=== PATIENT | female | born 1970 | race Hispanic/Latino ===

== ENCOUNTER → 2018-03-27 | Outpatient (CLI) | payer MEDICARE, OTHER ==
[~2018-03-27] MED LIST: LIDOCAINE HCL MPF 1% 5ML VIAL ONE
== END | disposition home or self-care (01) ==
LOC: RAH 09:45
PROVIDERS: ATTEND Internal Medicine Infectious Disease
DX: G91.9 Hydrocephalus, unspecified (principal); E11.9 Type 2 diabetes mellitus without complications; E66.01 Morbid (severe) obesity due to excess calories; Z90.49 Acquired absence of other specified parts of digestive tract; Z98.890 Other specified postprocedural states; Z88.8 Allergy status to other drugs, medicaments and biological substances; Z68.41 Body mass index [BMI] 40.0-44.9, adult
CPT/HCPCS: 62272; J3490; 62270

== ENCOUNTER 2024-03-13 20:33 | Emergency (ER) | payer MEDICARE ==
[~2024-03-13] VITALS: Ht 154.9 cm; Wt 117.0 kg
[2024-03-13 20:39] VITALS: BP 154/59; PULSE 74; RESP 16; TEMP 98
[2024-03-13] MEDS ORDERED: PROCHLORPERAZINE 10MG/2ML INJ IV ONE (21:00)
[2024-03-13] MEDS ORDERED: DiphenhydrAMINE HCL 50 MG/ML VIAL IM ONE (21:00)
[2024-03-13] MEDS ORDERED: ketOROlac 30MG VIAL (30MG/ML) IM ONE (21:00)
== END 2024-03-14 00:19 | disposition left against medical advice (07) ==
LOC: EDH 20:33
DX: Z00.00 Encounter for general adult medical examination without abnormal findings (principal); F32.A Depression, unspecified; E11.9 Type 2 diabetes mellitus without complications; Z90.49 Acquired absence of other specified parts of digestive tract; Z88.8 Allergy status to other drugs, medicaments and biological substances

== ENCOUNTER 2024-08-19 15:43 | Emergency (ER) | payer MEDICARE ==
[~2024-08-19] VITALS: Ht 154.9 cm; Wt 110.2 kg
[2024-08-19 15:57] VITALS: BP 176/70; PULSE 80; RESP 20; TEMP 99.9; O2SAT 99
[2024-08-19] MEDS: 0.9%NACL 1000ML 1,000 ML IV ONE (16:06)
[2024-08-19] MEDS: morPHINE 2 MG SYG IVP ONE (16:06)
[2024-08-19 16:09] LABS: APPEARANCE,URINE TURBID (CLEAR); BILIRUBIN,URINE NEGATIVE (NEGATIVE); COLOR,URINE LIGHT-ORANGE (YELLOW); GLUCOSE, URINE (UA) NEGATIVE (NEGATIVE); KETONES,URINE NEGATIVE (NEGATIVE); LEUKOCYTE ESTERASE ,URINE 500 Leu/uL (NEGATIVE); NITRATE,URINE 2+ (NEGATIVE); OCCULT BLOOD,URINE MODERATE (NEGATIVE); PH,URINE 5.5 (5.0-8.0); PROTEIN,URINE 50 mg/dL (NEGATIVE); UROBILINOGEN,URINE 0.2 mg/dL (0.2-1.0)
[2024-08-19 16:14] LABS: ADD UA MICROSCOPIC YES
[2024-08-19 16:16] LABS: BASOPHILS # (AUTO) 0.04 K/uL (0.00-0.20); BASOPHILS % (AUTO) 0.4 % (0.0-5.0); EOSINOPHILS # (AUTO) 0.05 K/uL (0.00-0.70); EOSINOPHILS % (AUTO) 0.5 % (0.0-8.0); HEMATOCRIT 45.9 % (36-48); IMMATURE GRANULOCYTE ABSOLUTE 0.03 K/uL (0-1); MEAN CORPUSCULAR HEMOGLOBIN 28.4 pg (27.0-33.0); MEAN CORPUSCULAR HGB CONC 32.7 g/dL (32.0-36.0); MEAN CORPUSCULAR VOLUME 86.8 fL (79-99); MONOCYTES # (AUTO) 0.6 K/uL (0.1-1.0); MONOCYTES % (AUTO) 5.1 % (3.0-13.0); NEUTROPHILS # (AUTO) 9.3 K/uL (1.8-7.7); NEUTROPHILS % (AUTO) 84.7 % (40.0-77.0); PLATELET COUNT (AUTO) 203 K/uL (130-400); RED BLOOD CELL COUNT(AUTO) 5.29 MIL/uL (4.00-5.50); RED CELL DISTRIBUTION WIDTH 14.2 % (11.0-15.5)
[2024-08-19 16:25] LABS: BACTERIA,URINE RARE /HPF (None Seen); SQUAMOUS EPITHELIAL CELL,UR RARE /HPF (0-2); UNCLASSIFIED CRYSTAL 6 /HPF (None Seen); WBC CLUMP MOD /HPF (0-1); WBC,URINE TNTC /HPF (0-1); YEAST,URINE BUDDING FEW /HPF (None Seen)
[2024-08-19 16:28] LABS: CREATININE 0.8 mg/dL (0.5-1.0); POTASSIUM 4.1 mmol/L (3.5-5.1)
[2024-08-19 16:33] LABS: ALBUMIN 3.4 g/dL (3.5-5.0); BILIRUBIN,TOTAL 0.6 mg/dL (0.2-1.0); TOTAL PROTEIN, SERUM 7.9 g/dL (6.0-8.3)
--- NOTE | 2024-08-19 16:37 | HMCIMG ---
CT ABDOMEN/PELVIS W/O CONTRAST REASON: Flank pain COMPARISON: 03/06/2018 FINDINGS: Lung bases are clear. There are no focal liver lesions. Liver does not appear enlarged.. Spleen and pancreas appear unremarkable. There has been a previous cholecystectomy. There is normal-appearing right kidney. There is mild pelvicalyceal fullness left kidney along with some perinephric stranding. There is some stranding around the left ureter as well. There is no evidence of ureteral stone and no visible stone in the urinary bladder. These findings may represent changes from a recently passed stone. Pyelonephritis can cause this appearance as well. Kidneys are otherwise unremarkable. Right kidney appears normal. There are no masses. There are no renal stones. Bowel loops appear unremarkable. This includes normal appearance of the appendix There is no evidence of free fluid or intraperitoneal air. There are no focal fluid collections. Aorta and retroperitoneum appear normal as do pelvic soft tissue structures. The anterior abdominal wall is intact. Osseous structures appear unremarkable. IMPRESSION: 1. Pelvicalyceal fullness left kidney along with some perirenal and pararenal the ureteral stranding, but no stone identified. 2. Nonspecific findings, recently passed stone can cause this appearance, pyelonephritis can result in this appearance as well. 3. Absent gallbladder. 4. Otherwise unremarkable exam. CT was performed with one or more following dose reduction techniques: automated exposure control, adjustment of the mA and kv according to patient's size, or use of a iterative reconstruction technique.
[2024-08-19] MEDS ORDERED: CEPH500T PO (17:03)
--- NOTE | 2024-08-19 17:04 | ERN ---
General Chief Complaint: Flank Pain Stated Complaint: FLANK PAIN Time Seen by MD: 15:45 Time Seen by Midlevel: 15:45 Source: patient History of Present Illness Initial Comments 54-year-old female who presents to the emergency department by EMS due to bilateral flank pain onset three days. Patient reports painful urination but denies any fever, vomiting, abdominal pain or further associated symptoms. PMHx HTN, DM, anxiety Allergies: Coded Allergies: paroxetine (Verified Allergy, Unknown, 03/06/18) sertraline (Verified Allergy, Unknown, 03/06/18) Home Meds Active Scripts Cephalexin (Cephalexin) 500 Mg Tablet, 500 MG PO BID for 7 Days, #14 TAB Prov:TALAT TAY 08/19/24 Past Medical History Past Medical History: Anxiety, Diabetes-Type II, Hypertension Medical History Other: PTSD, HYDROCEPHALUS Past Surgical History: None ROS Dictation Constitutional: Negative for fever,chills, and weight loss Eyes: Negative for injury, pain,redness, and discharge ENT: Negative for injury,pain or swelling Cardiovascular: Negative for chest pain, palpitations, and edema Respiratory: Negative for shortness of breath, cough, and wheezing, Abdomen/GI: Negative for abdominal pain, nausea, vomiting, diarrhea, and constipation Back: Positive for bilateral flank pain Negative for injury and pain : Positive for painful urination Negative for bleeding or discharge MS/Extremity: Negative for injury and deformity Skin: Negative for rash, and discoloration Neuro: Negative for headache, weakness, numbness, tingling, and seizure Psych: Negative for suicide ideation, homicidal ideation, and hallucinations Physical Exam Physical Exam Dictation General: awake, alert, no acute distress Head/Face: Normocephalic, atraumatic Eyes: PERRL, EOMI, normal conjunctiva ENT: oral cavity clear, oral mucosa moist Neck: Normal range of motion, supple Cardiovascular: RRR, normal S1/S2 Respiratory: CTAB, no respiratory distress, No rales or wheezes Abdomen: Soft, non-tender, non-distended, no guarding or rebound. Back: No CVA tenderness Skin: Warm, dry, normal turgor, no rash MS/Extremity: Pulses equal, no cyanosis, neurovascular intact, FROM Neuro: COAx4, GCS 15, no neurological deficits Psych: Normal behavior, mood, and affect normal Results Laboratory and Microbiology Lab and Micro Result Laboratory Tests Test 08/19/24 15:46 08/19/24 16:07 Urine Color LIGHT-ORANGE (YELLOW) Urine Appearance TURBID (CLEAR) Urine pH 5.5 (5.0-8.0) Urine Specific [place] 1.009 (1.001-1.031) Urine Protein 50 mg/dL (NEGATIVE) H Urine Glucose (UA) NEGATIVE mg/dL (NEGATIVE) Urine Ketones NEGATIVE mg/dL (NEGATIVE) Urine Occult Blood MODERATE (NEGATIVE) H Urine Nitrate 2+ (NEGATIVE) H Urine Bilirubin NEGATIVE mg/dL (NEGATIVE) Urine Urobilinogen 0.2 mg/dL (0.2-1.0) Urine Leukocyte Esterase 500 Joon/uL (NEGATIVE) H Urine RBC 11-25 /HPF (0-1) H Urine WBC TNTC /HPF (0-1) H Urine WBC Clumps (Auto) MOD /HPF (0-1) Urine Squamous Epithelial Cells RARE /HPF (0-2) Urine Other Crystals (Auto) 6 /HPF (None Seen) Urine Bacteria RARE /HPF (None Seen) Urine Yeast FEW /HPF (None Seen) Urine HCG, Qualitative NEGATIVE (NEGATIVE) White Blood Count 11.0 K/uL (4.8-10.8) H Red Blood Count 5.29 MIL/uL (4.00-5.50) Hemoglobin 15.0 g/dL (12.0-16.0) Hematocrit 45.9 % (36-48) Mean Corpuscular Volume 86.8 fL (79-99) Mean Corpuscular Hemoglobin 28.4 pg (27.0-33.0) Mean Corpuscular Hemoglobin Concent 32.7 g/dL (32.0-36.0) Red Cell Distribution Width 14.2 % (11.0-15.5) Platelet Count 203 K/uL (130-400) Mean Platelet Volume 11.2 fL (7.5-10.5) H Immature Granulocyte % (Auto) 0.3 % (0-1) Neutrophils (%) (Auto) 84.7 % (40.0-77.0) H Lymphocytes (%) (Auto) 9.0 % (21.0-51.0) L Monocytes (%) (Auto) 5.1 % (3.0-13.0) Eosinophils (%) (Auto) 0.5 % (0.0-8.0) Basophils (%) (Auto) 0.4 % (0.0-5.0) Neutrophils # (Auto) 9.3 K/uL (1.8-7.7) H Lymphocytes # (Auto) 1.0 K/uL (1.0-4.8) Monocytes # (Auto) 0.6 K/uL (0.1-1.0) Eosinophils # (Auto) 0.05 K/uL (0.00-0.70) Basophils # (Auto) 0.04 K/uL (0.00-0.20) Absolute Immature Granulocyte (auto 0.03 K/uL (0-1) Nucleated Red Blood Cells 0.0 % (0.0-0.19) White Cell Morphology Comment See comments Sodium Level 137 mmol/L (136-145) Potassium Level 4.1 mmol/L (3.5-5.1) Chloride Level 102 mmol/L (101-111) Carbon Dioxide Level 31 mmol/L (21-32) Blood Urea Nitrogen 12 mg/dL (7-18) Creatinine 0.8 mg/dL (0.5-1.0) Glomerular Filtration Rate Calc 89 mL/min (>90) Random Glucose 139 mg/dL (70-105) H Total Calcium 9.2 mg/dL (8.5-10.1) Total Bilirubin 0.6 mg/dL (0.2-1.0) Aspartate Amino Transf (AST/SGOT) 11 U/L (10-37) Alanine Aminotransferase (ALT/SGPT) 18 U/L (12-78) Alkaline Phosphatase 82 U/L (50-136) Total Protein 7.9 g/dL (6.0-8.3) Albumin 3.4 g/dL (3.5-5.0) L Lipase 20 U/L (16-77) Labs Reviewed?: Yes EKG/XRAY/US/CT/MRI CT Scan Comment REASON: Flank pain ORDERING PHYSICIAN: TALAT TAY PROCEDURE: ABD PEL WO - CT ABDOMEN/PELVIS W/O CONTRAST CT ABDOMEN/PELVIS W/O CONTRAST REASON: Flank pain COMPARISON: 03/06/2018 FINDINGS: Lung bases are clear. There are no focal liver lesions. Liver does not appear enlarged.. Spleen and pancreas appear unremarkable. There has been a previous cholecystectomy. There is normal-appearing right kidney. There is mild pelvicalyceal fullness left kidney along with some perinephric stranding. There is some stranding around the left ureter as well. There is no evidence of ureteral stone and no visible stone in the urinary bladder. These findings may represent changes from a recently passed stone. Pyelonephritis can cause this appearance as well. Kidneys are otherwise unremarkable. Right kidney appears normal. There are no masses. There are no renal stones. Bowel loops appear unremarkable. This includes normal appearance of the appendix There is no evidence of free fluid or intraperitoneal air. There are no focal fluid collections. Aorta and retroperitoneum appear normal as do pelvic soft tissue structures. The anterior abdominal wall is intact. Osseous structures appear unremarkable. IMPRESSION: 1. Pelvicalyceal fullness left kidney along with some perirenal and pararenal the ureteral stranding, but no stone identified. 2. Nonspecific findings, recently passed stone can cause this appearance, pyelonephritis can result in this appearance as well. 3. Absent gallbladder. 4. Otherwise unremarkable exam. CT was performed with one or more following dose reduction techniques: automated exposure control, adjustment of the mA and kv according to patient's size, or use of a iterative reconstruction technique. MDM MDM: Differential diagnosis: UTI, pyelonephritis, nephrolithiasis Rationale: 54-year-old female who presents to the emergency department due to bilateral flank pain onset three days. Patient reports painful urination but denies any fever, vomiting, abdominal pain or further associated symptoms. PMHx HTN, DM, anxiety Per physical examination patient is in no acute distress, nonlabored breathing, abdomen is soft nontender, no CVA tenderness. Labs obtained are nonspecific mild WBC elevation at 11 otherwise labs within normal limits. UA positive for urinary tract infection. Rocephin administered in the ED. CT abdomen pelvis obtained indicating left kidney fullness with some perirenal and a pararenal ureteral stranding with no stone. Patient received morphine in the ED on re- examination patient verbalized pain had completely subsided. Patient was educat ed on findings and diagnosis. Antibiotics prescribed for outpatient treatment. Advised to follow up with PCP. Return to the emergency department if any worsening symptoms. Patient verbalized understanding. Patient stable for discharge. There are no social concerns with this patient. I independently interpreted the test that were performed, results were reviewed by me and considered findings on radiology if ordered. Medical management and examination interpretation discussions were had by me with other qualified healthcare professionals as indicated for the patient's care. ED Course Orders Procedure Category Date Status Time Cbc With Differential LAB 08/19/24 Complete 15:45 Comprehensive LAB 08/19/24 Complete Metabolic Panel 15:45 ,Urine Test LAB 08/19/24 Complete 15:45 Lipase LAB 08/19/24 Complete 15:45 Urinalysis Profile LAB 08/19/24 Complete 15:47 Ct Abdomen/Pelvis W/O CT 08/19/24 Resulted Contrast 15:53 Morphine 2mg Syg PHA 08/19/24 Complete (Morphine 2mg Syg) 16:00 0.9%Nacl 1000ml (Ns PHA 08/19/24 Complete 1000ml) 16:00 Culture Urine GARRET 08/19/24 In Process 16:14 Ceftriaxone 1g Vial PHA 08/19/24 Complete (Rocephine 1g Inj) 17:00 Current Medications Medications (Trade) Dose Ordered Sig/Gely Route PRN Reason Start Time Stop Time Status Last Admin Dose Admin Ceftriaxone Sodium (ROCEphine 1G INJ) 1 gm ONCE ONCE IVPB 08/19/24 17:00 08/19/24 17:02 DC 08/19/24 17:05 Morphine Sulfate (morPHINE 2MG SYG) 2 mg ONCE ONCE IVP 08/19/24 16:00 08/19/24 16:01 DC 08/19/24 16:06 Sodium Chloride 1,000 ml @ 0 mls/hr ONCE ONCE IV 08/19/24 16:00 08/19/24 16:01 DC 08/19/24 16:06 Vital Signs Date Time Temp Pulse Resp B/P (MAP) Pulse Ox O2 Delivery O2 Flow Rate FiO2 08/19/24 15:57 99.9 80 20 176/70 99 Room Air* 0 21 08/19/24 15:54 99.9 88 20 113/69 96 0 DX & DISP Disposition: Discharge Departure Impression: Primary Impression: Urinary tract infection Condition: Stable Scripts Cephalexin (Cephalexin) 500 Mg Tablet 500 MG PO BID for 7 Days, #14 TAB Prov: TALAT TAY 08/19/24 Additional Instructions: Discharge home. Rest. Follow up with primary care in 24 hours. Return to the ER for any acute changes or worsening symptoms. If any medications were prescribed take as directed. Okay to continue home medications unless otherwise discussed during your visit in the emergency room today. Patient was also advised to follow-up with primary care physician in 1 to 2 days for continued monitoring. Referrals: MARJAN CLEANING MD (PCP) I participated in the following activities of this patient's care: For this patient encounter, I reviewed the PA or ROTARY DRILLER documentation, treatment plan, and medical decision making. I did not have [id number] time with this patient. I will sign as the reviewing Dr. And agree with the treatment plan and disposition. TALAT TAY Aug 19, 2024 17:04
[2024-08-19] MEDS: cefTRIAXone 1G VIAL IVPB ONE (17:05)
== END 2024-08-19 17:33 | disposition home or self-care (01) ==
LOC: EDH 15:43
DX: N39.0 Urinary tract infection, site not specified (principal); I10 Essential (primary) hypertension; E11.9 Type 2 diabetes mellitus without complications; F41.9 Anxiety disorder, unspecified; Z79.899 Other long term (current) drug therapy
CPT/HCPCS: 99285; 74176; 96365; 96361; 96375; 80053; 83690; 85025; 87086 ×2; 87186; 81001; 81025; 36415; J2270 ×2; J7030; J0696

== ENCOUNTER 2024-12-24 00:39 | Emergency (ER) | payer MEDICARE ==
[~2024-12-24] VITALS: Ht 154.9 cm; Wt 110.2 kg
[~2024-12-24 00:39] MED LIST changes: +CEPH500T PO; -LIDOCAINE HCL MPF 1% 5ML VIAL ONE
--- NOTE | 2024-12-24 00:44 | ERN ---
ED Note History of Present Illness Stated Complaint: FLU LIKE SYMPTOMS Chief Complaint: Flu Symptoms Time Seen by MD: 01:08 Time Seen by Midlevel: 00:38 Dictation: Ms. Pedro is a 54 year old female with history of obesity, hypertension, type II DM, hydrocephalus, anxiety, bipolar depression and anxiety who was transported via EMS to the Emergency Department this morning for evaluation of flu symptoms. She reports 3 days of fatigue, general weakness, fever, chills, cough, wheezing, loss of taste, nausea, vomiting, diarrhea, AJ, dizziness, and anxiety. She states she has been unable to take any of her medications or keep down food or fluids. Upon arrival to the ED she is anxious and tearful stating she is scared to be at home. She states he and she lives alone. She is drinking a very large convenience store soda. She denies shortness of breath, chest pain, palpitations, edema, abdominal pain, hematemesis, constipation, melena, hematochezia, dysuria, or focal weakness/paresthesia Allergies: Coded Allergies: paroxetine (Verified Allergy, Unknown, 03/06/18) sertraline (Verified Allergy, Unknown, 03/06/18) Emergency Care APPRENTICE TECHNICIAN: IV Home Meds Active Scripts Cephalexin (Cephalexin) 500 Mg Tablet, 1 TAB PO BID for 10 Days, #20 TAB 0 Refills Prov:SIDDHARTHA HANSEN NP 12/24/24 Ondansetron (Ondansetron Odt) 4 Mg Tab.rapdis, 4 MG PO Q6HPRN PRN for nausea, #15 TAB 0 Refills Prov:SIDDHARTHA HANSEN NP 12/24/24 Cephalexin (Cephalexin) 500 Mg Tablet, 500 MG PO BID for 7 Days, #14 TAB Prov:TALAT TAY 08/19/24 Past Medical History Past Medical History: Anxiety, Diabetes-Type II, Hypertension Additional Past Medical Hx: PTSD, HYDROCEPHALUS Surgical History: None PSYCH History: anxiety, bipolar, depression Social History: Negative, Lives alone History: Not Applicable RN Note Reviewed/Agreed w/PFSH: Yes Review of System Dictation REVIEW OF SYSTEMS: CONSTITUTIONAL: Patient denies sweats and weight changes. Reports fatigue, general weakness, fever, and chills. EYES: Patient denies any visual symptoms. EARS, NOSE, AND THROAT: No difficulties with hearing. No symptoms of rhinitis or sore throat. Reports loss of taste. CARDIOVASCULAR: Patient denies chest pains, palpitations, orthopnea and paroxysmal nocturnal dyspnea. RESPIRATORY: No dyspnea on exertion. Reports cough and wheezing. GI: No constipation, abdominal pain, hematochezia or melena. Reports nausea, vomiting, and diarrhea. : No urinary hesitancy or dribbling. No nocturia or urinary frequency. No ab normal urethral discharge. MUSCULOSKELETAL: No myalgias or arthralgias. NEUROLOGIC: No chronic headaches, no seizures. Patient denies numbness, tingling or weakness. Reports headache and dizziness. PSYCHIATRIC: Patient denies problems with mood disturbance. No problems with anxiety. ENDOCRINE: No excessive urination or excessive thirst. DERMATOLOGIC: Patient denies any rashes or skin changes. Initial Vital Sign VS Vital Signs Date Time Temp Pulse Resp B/P (MAP) Pulse Ox O2 Delivery O2 Flow Rate FiO2 12/24/24 00:42 99.0 87 18 120/82 99 Room Air 12/24/24 00:48 0 21 Physical Exam Dictation Vital signs: Reviewed. Temp 99. Constitutional: Appears older than stated age. Anxious, tearful. Smells strongly of urine. Head/Face: Normocephalic, atraumatic. Eyes: Periorbital areas with no swelling, redness, or edema. Lids and lashes are normal. Conjunctival injection is absent. Sclera anicteric. Pupils equal, round, reactive to light. ENT: Pinnas intact and no signs of trauma or erythema. Ear canals clear and no discharge. TMs no erythema. No nasal discharge or bleeding noted. Oropharynx with no exudate, redness, swelling, masses, exudates, or evidence of obstruction. Uvula midline. Mucous membranes slightly dry. Neck: Trachea midline, no masses palpated, and no cervical lymphadenopathy. No swelling. Supple, full range of motion. Chest/Axilla: No tenderness, no crepitus, no paradoxical movement, no retractions. Cardiovascular: Regular rate, regular rhythm, no murmur, no gallops. Symmetric pulses. No peripheral edema. Normotensive. Respiratory: Respirations even and unlabored. Lung sounds slightly diminished in bases. No wheezes, rales, or rhonchi. Room air SpO2 98% : negative CVA tenderness bilaterally. Was up to bathroom but did not obtain sample. Gastrointestinal: Obese. No distention is appreciated. Bowel sounds are normal. No mass or organomegaly . There is no tenderness. No rebound. No rigidity. No voluntary or involuntary guarding. No Gasca's sign. Neurological: Normal speech, gross motor function intact, gross sensory function intact. No focal weakness/Paresthesia. Musculoskeletal/Extremities: All extremities have full range of motion, no pain or tenderness on palpation. Symmetric pulses. Integumentary: Intact. Skin is normal color, warm and dry. Cap refill less than 2 seconds. Results (Laboratory/Radiology) Laboratory/Radiology Laboratory Tests Test 12/24/24 00:51 12/24/24 00:58 12/24/24 02:43 White Blood Count 6.1 K/uL (4.8-10.8) Red Blood Count 5.07 MIL/uL (4.00-5.50) Hemoglobin 14.6 g/dL (12.0-16.0) Hematocrit 43.8 % (36-48) Mean Corpuscular Volume 86.4 fL (79-99) Mean Corpuscular Hemoglobin 28.8 pg (27.0-33.0) Mean Corpuscular Hemoglobin Concent 33.3 g/dL (32.0-36.0) Red Cell Distribution Width 15.2 % (11.0-15.5) Platelet Count 122 K/uL (130-400) L Mean Platelet Volume 11.6 fL (7.5-10.5) H Immature Granulocyte % (Auto) 0.2 % (0-1) Neutrophils (%) (Auto) 77.4 % (40.0-77.0) H Lymphocytes (%) (Auto) 13.5 % (21.0-51.0) L Monocytes (%) (Auto) 8.7 % (3.0-13.0) Eosinophils (%) (Auto) 0.0 % (0.0-8.0) Basophils (%) (Auto) 0.2 % (0.0-5.0) Neutrophils # (Auto) 4.7 K/uL (1.8-7.7) Lymphocytes # (Auto) 0.8 K/uL (1.0-4.8) L Monocytes # (Auto) 0.5 K/uL (0.1-1.0) Eosinophils # (Auto) 0.00 K/uL (0.00-0.70) Basophils # (Auto) 0.01 K/uL (0.00-0.20) Absolute Immature Granulocyte (auto 0.01 K/uL (0-1) Nucleated Red Blood Cells 0.0 % (0.0-0.19) Sodium Level 136 mmol/L (136-145) Potassium Level 3.7 mmol/L (3.5-5.1) Chloride Level 99 mmol/L (101-111) L Carbon Dioxide Level 29 mmol/L (21-32) Blood Urea Nitrogen 22 mg/dL (7-18) H Creatinine 0.9 mg/dL (0.5-1.0) Glomerular Filtration Rate Calc 77 mL/min (>90) Random Glucose 164 mg/dL (70-105) H Lactic Acid Level 1.5 mmol/L (0.8-2.5) Total Calcium 8.8 mg/dL (8.5-10.1) Total Bilirubin 0.4 mg/dL (0.2-1.0) Direct Bilirubin 0.1 mg/dL (0.0-0.3) Aspartate Amino Transf (AST/SGOT) 22 U/L (10-37) Alanine Aminotransferase (ALT/SGPT) 28 U/L (12-78) Alkaline Phosphatase 82 U/L (50-136) Total Protein 8.2 g/dL (6.0-8.3) Albumin 3.7 g/dL (3.5-5.0) Lipase 28 U/L (16-77) Influenza Type A Antigen NEGATIVE FOR TYPE A Influenza Type B Antigen NEGATIVE FOR TYPE B SARS-CoV-2, RNA, NAAT NEGATIVE SARS CoV-2 Urine Color YELLOW (YELLOW) Urine Appearance TURBID (CLEAR) Urine pH 6.0 (5.0-8.0) Urine Specific [place] 1.029 (1.001-1.031) Urine Protein 70 mg/dL (NEGATIVE) H Urine Glucose (UA) NEGATIVE mg/dL (NEGATIVE) Urine Ketones NEGATIVE mg/dL (NEGATIVE) Urine Occult Blood MODERATE (NEGATIVE) H Urine Nitrate NEGATIVE (NEGATIVE) Urine Bilirubin NEGATIVE mg/dL (NEGATIVE) Urine Urobilinogen 0.2 mg/dL (0.2-1.0) Urine Leukocyte Esterase 500 Joon/uL (NEGATIVE) H Urine RBC 11-25 /HPF (0-1) H Urine WBC TNTC /HPF (0-1) H Urine WBC Clumps (Auto) MANY /HPF (0-1) Urine Squamous Epithelial Cells MANY /HPF (0-2) Urine Non-Squamous Epithelial Cells 2 /HPF (0-2) Urine Bacteria FEW /HPF (None Seen) Urine Yeast FEW /HPF (None Seen) ED Course ED Course Orders Procedure Category Date Status Time Influenza Type A & B, LAB 12/24/24 Complete Rapid 00:46 Covid Rna Naat LAB 12/24/24 Complete 00:46 Cbc With Differential LAB 12/24/24 Complete 00:46 Basic Metabolic Panel LAB 12/24/24 Complete 00:46 Hepatic Function Panel LAB 12/24/24 Complete 00:46 Lipase LAB 12/24/24 Complete 00:46 Urinalysis Profile LAB 12/24/24 Complete 00:46 Lactic Acid LAB 12/24/24 Complete 00:46 0.9% Nacl 500ml PHA 12/24/24 Complete Iv.Soln (Ns 500ml 01:00 Ondansetron 4mg Inj PHA 12/24/24 Complete (Zofran 4mg Inj) 01:00 Chest 1vw RAD 12/24/24 Taken 00:47 Ceftriaxone 1g Vial PHA 12/24/24 Complete (Rocephine 1g Inj) 03:00 Culture Urine GARRET 12/24/24 In Process 03:16 Current Medications Medications (Trade) Dose Ordered Sig/Gely Route PRN Reason Start Time Stop Time Status Last Admin Dose Admin Ceftriaxone Sodium (ROCEphine 1G INJ) 1 gm ONCE ONCE IVPB 12/24/24 03:00 12/24/24 03:01 DC 12/24/24 03:00 Ondansetron HCl (zoFRAN 4MG INJ) 4 mg ONCE ONCE IVP 12/24/24 01:00 12/24/24 01:01 DC 12/24/24 01:02 Sodium Chloride 500 ml @ 0 mls/hr ONCE ONCE IV 12/24/24 01:00 12/24/24 01:01 DC 12/24/24 01:02 Vital Signs Date Time Temp Pulse Resp B/P (MAP) Pulse Ox O2 Delivery O2 Flow Rate FiO2 12/24/24 03:07 98.2 68 19 121/73 98 Room Air* 0 21 12/24/24 02:41 98.8 79 17 119/72 99 Room Air* 0 12/24/24 01:45 98.8 80 15 117/74 97 Room Air* 0 12/24/24 00:48 99.0 87 19 121/79 98 Room Air* 0 12/24/24 00:42 99.0 87 18 120/82 99 Room Air Laboratory findings as noted below. No elevation of WBCs were lactic acid. Platelet 122, Cl 99, BUN 22, BUN/CR ratio 24.4, and glucose 164. Urine cloudy yellow with foul odor. Negative CVA tenderness bilaterally. While in the ED she received doses Zofran, Rocephin, and NS 500ml IV as bolus. She has been up to bathroom with steady gait. No further emesis; tolerating po fluids. Findings were discussed with patient and all questions were answered. Medical Decision Making MDM MDM: Differential diagnosis: Influenza, COVID, dehydration, UTI Rationale: Tests considered and ordered secondary to shared decision making include: Lab Previous outside records reviewed: Old ER visits. Risk of complication and/or morbidity or mortality of patient management: None Medications-Per medication reconciliation Need for hospitalization: Patient does not meet criteria for hospitalization. Need for emergency major/minor surgery: No There are no social concerns with this patient. Prescription drug management: Cephalexin, ondansetron ODT, OTC Tylenol or ibuprofen Prescriptions will include symptomatic care Patient's prior external medical records from other ER visits were reviewed by me as indicated. Prior testing and results from previous visits were reviewed. Prior tests were taken into account with medical decision making and resource utilization, independent historian/historians were used to obtain complete medical history. I independently interpreted the test that were performed, results were reviewed by me and considered findings on radiology if ordered. Medical management and examination interpretation discussions were had by me with other qualified healthcare professionals as indicated for the patient's care. DX & DISP Disposition: Discharge Departure Impression: Primary Impression: Diarrhea Additional Impressions: Dehydration, mild, Gastroenteritis, UTI (urinary tract infection) Condition: Stable Scripts Cephalexin (Cephalexin) 500 Mg Tablet 1 TAB PO BID for 10 Days, #20 TAB 0 Refills Prov: SIDDHARTHA HANSEN Mariajose CHEF'S ASSISTANT 12/24/24 Ondansetron (Ondansetron Odt) 4 Mg Tab.rapdis 4 MG PO Q6HPRN PRN for nausea, #15 TAB 0 Refills Prov: SIDDHARTHA HANSEN NP 12/24/24 Additional Instructions: You have a urinary tract infection and acute diarrhea, likely to a viral or bacterial gastrointestinal illness. Both conditions or common and usually resolve with proper treatment and hydration. Continue antibiotic with cephalexin twice daily times 10 days; finish the full course even if you feel better. Drink plenty of fluids (water, electrolyte solutions) to prevent dehydration from both diarrhea and UTI. Eat bland, easy to digest food (rice, bananas toes). Avoid alcohol, caffeine, dairy, greasy or spicy foods. You may take Tylenol or ibuprofen for urinary discomfort, fever, or body aches. May take [id number] loperamide only if diarrhea is not bloody and you do not have a high fever. Follow up with your PCP. Return if you develop worsening symptoms (fever, back pain, vomiting), persistent nausea and vomiting, bloody diarrhea, or inability to pass urine. May take Zofran ODT every 6-8 hours as needed for nausea. Follow up with your PCP in 2-3 days. Referrals: ANA LAURA AGUIAR MD (PCP) Time of Disposition: 02:51 I performed a substantive portion of the visit. I have reviewed and personally made and approve the management plan that is documented in the notes by myself with DARCY/resident. I acknowledged full responsibility for the patient's management plan. SIDDHARTHA HANSEN NP Dec 24, 2024 00:44 ARGENIS RUIZ DO Dec 24, 2024 06:54
[2024-12-24] MEDS: ondanSETRON 4MG INJ IVP ONE (01:02)
[2024-12-24] MEDS: 0.9% NACL 500ML IV.SOLN 500 ML IV ONE (01:02)
[2024-12-24 01:04] LABS: BASOPHILS # (AUTO) 0.01 K/uL (0.00-0.20); BASOPHILS % (AUTO) 0.2 % (0.0-5.0); HEMATOCRIT 43.8 % (36-48); IMMATURE GRANULOCYTE ABSOLUTE 0.01 K/uL (0-1); LYMPHOCYTES # (AUTO) 0.8 K/uL (1.0-4.8); LYMPHOCYTES % (AUTO) 13.5 % (21.0-51.0); MEAN CORPUSCULAR HEMOGLOBIN 28.8 pg (27.0-33.0); MEAN CORPUSCULAR HGB CONC 33.3 g/dL (32.0-36.0); MEAN CORPUSCULAR VOLUME 86.4 fL (79-99); MONOCYTES # (AUTO) 0.5 K/uL (0.1-1.0); MONOCYTES % (AUTO) 8.7 % (3.0-13.0); NEUTROPHILS # (AUTO) 4.7 K/uL (1.8-7.7); NEUTROPHILS % (AUTO) 77.4 % (40.0-77.0); PLATELET COUNT (AUTO) 122 K/uL (130-400); RED BLOOD CELL COUNT(AUTO) 5.07 MIL/uL (4.00-5.50); RED CELL DISTRIBUTION WIDTH 15.2 % (11.0-15.5); WHITE BLOOD COUNT (AUTO) 6.1 K/uL (4.8-10.8)
[2024-12-24 01:16] LABS: CREATININE 0.9 mg/dL (0.5-1.0); POTASSIUM 3.7 mmol/L (3.5-5.1)
[2024-12-24 01:20] LABS: ALBUMIN 3.7 g/dL (3.5-5.0); BILIRUBIN,DIRECT 0.1 mg/dL (0.0-0.3); BILIRUBIN,TOTAL 0.4 mg/dL (0.2-1.0); TOTAL PROTEIN, SERUM 8.2 g/dL (6.0-8.3)
[2024-12-24 01:27] LABS: SARS-CoV-2, RNA, NAAT NEGATIVE SARS CoV-2 (NEGATIVE)
[2024-12-24 01:43] LABS: INFLUENZA TYPE A NEGATIVE FOR TYPE A (NEGATIVE); INFLUENZA TYPE B NEGATIVE FOR TYPE B (NEGATIVE)
[2024-12-24] MEDS ORDERED: CEPH500T PO (02:48)
[2024-12-24] MEDS ORDERED: ONDA-243 PO (02:48)
[2024-12-24] MEDS: cefTRIAXone 1G VIAL IVPB ONE (03:00)
[2024-12-24 03:07] VITALS: BP 121/73; PULSE 68; RESP 19; TEMP 98.2; O2SAT 98
[2024-12-24 03:10] LABS: APPEARANCE,URINE TURBID (CLEAR); BILIRUBIN,URINE NEGATIVE (NEGATIVE); COLOR,URINE YELLOW (YELLOW); GLUCOSE, URINE (UA) NEGATIVE (NEGATIVE); KETONES,URINE NEGATIVE (NEGATIVE); LEUKOCYTE ESTERASE ,URINE 500 Leu/uL (NEGATIVE); NITRATE,URINE NEGATIVE (NEGATIVE); OCCULT BLOOD,URINE MODERATE (NEGATIVE); PROTEIN,URINE 70 mg/dL (NEGATIVE); UROBILINOGEN,URINE 0.2 mg/dL (0.2-1.0)
[2024-12-24 03:16] LABS: ADD UA MICROSCOPIC YES
[2024-12-24 03:17] LABS: BACTERIA,URINE FEW /HPF (None Seen); MUCUS,URINE RARE LPF (None Seen); NON-SQUAMOUS EPITHELIAL CELL 2 /HPF (0-2); SQUAMOUS EPITHELIAL CELL,UR MANY /HPF (0-2); WBC CLUMP MANY /HPF (0-1); WBC,URINE TNTC /HPF (0-1); YEAST,URINE BUDDING FEW /HPF (None Seen)
--- NOTE | 2024-12-24 16:16 | HMCIMG ---
CHEST 1VW HISTORY: Cough COMPARISON: None FINDINGS: A frontal projection of the chest was obtained. No acute pulmonary infiltrates is seen. The heart is normal in size. Prominent interstitial markings are seen. No evidence of aortic calcification is seen. IMPRESSION: 1. No acute pulmonary infiltrate is seen.
== END 2024-12-24 03:15 | disposition home or self-care (01) ==
LOC: EDH 00:39
DX: R19.7 Diarrhea, unspecified (principal); E86.0 Dehydration; N39.0 Urinary tract infection, site not specified; E11.9 Type 2 diabetes mellitus without complications; F31.9 Bipolar disorder, unspecified; I10 Essential (primary) hypertension; Z20.822 Contact with and (suspected) exposure to COVID-19
CPT/HCPCS: 99284; 96374; 71045; 87635; 96375; 80076; 80048; 83690; 85025; 87086 ×2; 87186; 87804 ×2; 83605; 81001; 36415; J0696; J2405